=== PATIENT | female | born 1945 | race African-American/Black ===

== ENCOUNTER 2017-09-28 23:54 | Observation (INO) ==
[2017-09-29] MEDS ORDERED: ONDANSETRON 4 MG/2 ML VIAL IV STA (00:40)
[2017-09-29] MEDS ORDERED: MORPHINE 4 MG/1 ML VIAL IV STA (00:40)
[2017-09-29] MEDS ORDERED: NITROGLYCERIN 2% OINT 1 INCH/GM PACK TOP STA (00:40)
[2017-09-29] MEDS ORDERED: ALUM/MAG/SIMETH/LIDO VISC 1:1 30 ML BOTTLE PO STA (00:40)
[2017-09-29] MEDS ORDERED: ASPIRIN 325 MG TABLET PO STA (00:40)
[2017-09-29 00:49] LABS: Basophils # 0.1 10*3/uL (0.0-0.2); Basophils % 0.7 % (0.0-0.8); Eosinophils # 0.2 10*3/uL (0.0-0.87); Eosinophils % 1.9 % (0.00-10.9); Hematocrit 37.5 VOL% (35.7-47.0); Hemoglobin 12.2 GM/DL (12.0-16.0); Immature Granulocytes % 0.2 %; Immature Granulocytes Absolute 0.02 #; Lymphocytes # 4.2 10*3/uL (1.4-4.0); Lymphocytes % 46.2 % (21.3-54.2); Mean Corpuscular HGB Conc 32.5 GM/DL (32-36); Mean Corpuscular Hemoglobin 27 PG (27-34); Mean Corpuscular Volume 82.8 FL (87-102); Monocytes # 0.7 10*3/uL (0.11-0.8); Monocytes % 7.9 % (1.7-12.7); Neutrophils # 3.9 10*3/uL (1.4-7.4); Neutrophils % 43.1 % (38.7-73.9); Platelet Count 324 T/CUMM (130-400); Red Blood Count 4.53 MC/CUMM (3.8-5.5); Red Cell Distribution Width 14.1 % (9.3-17.3)
[2017-09-29 01:00] LABS: PT Patient Result 10.4 SECS
[2017-09-29 01:20] LABS: Alanine Aminotransferase 19 U/L (13-56); Albumin 3.5 G/DL (3.4-5.0); Alkaline Phosphatase 80 U/L (45-117); Aspartate Amino Transferase 11 U/L (0-37); Bilirubin,Total < 0.39 MG/DL (0.2-1.0); Blood Urea Nitrogen 17 MG/DL (7-18); Calcium 9.3 MG/DL (8.5-10.1); Glucose 113 MG/DL (74-106); Potassium 3.4 MMOL/L (3.5-5.1); Sodium 143 MMOL/L (136-145); Total Protein 7.9 G/DL (6.4-8.3)
[2017-09-29 01:31] LABS: Amorphous Crystals,Urine Occasional /HPF (Few); Apearance,Urine CLOUDY (Clear); Bacteria,Urine Occasional /HPF (Few); Bilirubin,Urine Negative (Negative); Blood, Urine Small mg/dL (Negative); Glucose,Urine (UA) Negative (Negative); Ketones,Urine Negative (Negative); Nitrite,Urine Negative (Negative); Protein,Urine Negative; Squamous Epithelial Cell,Urine Occasional /HPF (0-10); Urine Color Yellow (Yellow); Urine Urobilinogen < 2.0 EU/DL (0.2-1.0); WBC,Urine 7 /HPF (0-6)
[2017-09-29] MEDS ORDERED: cefTRIAXone 1,000 MG in SODIUM CHLORIDE 0.9% 100 ML IV STA (02:16)
[2017-09-29] MEDS ORDERED: ONDANSETRON 4 MG/2 ML VIAL IV PRN (03:31)
[2017-09-29] MEDS ORDERED: ACETAMINOPHEN 325 MG TABLET PO PRN (03:31)
[2017-09-29] MEDS ORDERED: MORPHINE 4 MG/1 ML VIAL IV PRN (03:31)
[2017-09-29] MEDS ORDERED: NITROGLYCERIN SL 0.4 MG TABLET SL PRN (03:40)
[2017-09-29] MEDS ORDERED: POTASSIUM CHLORIDE 20 MEQ TABLET PO ONE (04:00)
[2017-09-29] MEDS: GABAPENTIN 300 MG CAPSULE PO SCH ×2 (04:05→11:42)
[2017-09-29 07:27] LABS: Basophils # 0.1 10*3/uL (0.0-0.2); Basophils % 0.5 % (0.0-0.8); Eosinophils # 0.1 10*3/uL (0.0-0.87); Eosinophils % 1.4 % (0.00-10.9); Hematocrit 33.8 VOL% (35.7-47.0); Hemoglobin 11.2 GM/DL (12.0-16.0); Immature Granulocytes % 0.1 %; Immature Granulocytes Absolute 0.01 #; Lymphocytes # 3.3 10*3/uL (1.4-4.0); Lymphocytes % 35.5 % (21.3-54.2); Mean Corpuscular HGB Conc 33.1 GM/DL (32-36); Mean Corpuscular Hemoglobin 27 PG (27-34); Monocytes # 0.9 10*3/uL (0.11-0.8); Monocytes % 9.5 % (1.7-12.7); Platelet Count 290 T/CUMM (130-400); Red Blood Count 4.12 MC/CUMM (3.8-5.5); White Blood Count 9.4 T/CUMM (4-12)
[2017-09-29 08:10] LABS: Calcium 8.8 MG/DL (8.5-10.1); Potassium 3.8 MMOL/L (3.5-5.1); Risk Ratio 2.85; Thyroid Stimulating Hormone 1.03 uIU/ml (0.358-3.74)
[2017-09-29] MEDS ORDERED: POTASSIUM CHLORIDE 20 MEQ TABLET PO PRN (08:29)
[2017-09-29] MEDS ORDERED: Mirabegron [Myrbetriq] 25 MG PO SCH (09:00)
[2017-09-29] MEDS ORDERED: REGADENOSON 0.4 MG/5 ML SYRINGE IV ONE (10:52)
[2017-09-29] MEDS: ASPIRIN EC 81 MG TABLET PO SCH (11:43)
[2017-09-29] MEDS: CYCLOBENZAPRINE 10 MG TABLET PO SCH ×2 (11:43→14:12)
[2017-09-29] MEDS: MELOXICAM 7.5 MG TABLET PO SCH (11:43)
[2017-09-29] MEDS: PANTOPRAZOLE 40 MG TABLET PO SCH (11:43)
[2017-09-29] MEDS: ENOXAPARIN 40 MG/0.4 ML SYRINGE SUBCUT SCH (11:43)
[2017-09-30] MEDS ORDERED: cefTRIAXone 1,000 MG in SYRINGE 1 EACH IV SCH (06:00)
[2017-09-30 06:29] LABS: Basophils % 0.6 % (0.0-0.8); Eosinophils # 0.1 10*3/uL (0.0-0.87); Eosinophils % 2.1 % (0.00-10.9); Hematocrit 33.4 VOL% (35.7-47.0); Hemoglobin 11.2 GM/DL (12.0-16.0); Immature Granulocytes % 0.2 %; Immature Granulocytes Absolute 0.01 #; Lymphocytes # 3.7 10*3/uL (1.4-4.0); Lymphocytes % 55.1 % (21.3-54.2); Mean Corpuscular HGB Conc 33.5 GM/DL (32-36); Mean Corpuscular Hemoglobin 27 PG (27-34); Mean Corpuscular Volume 81.3 FL (87-102); Mean Platelet Volume 9.3 FL (9.6-12.0); Monocytes # 0.6 10*3/uL (0.11-0.8); Monocytes % 8.9 % (1.7-12.7); Neutrophils # 2.2 10*3/uL (1.4-7.4); Neutrophils % 33.1 % (38.7-73.9); Platelet Count 292 T/CUMM (130-400); Red Blood Count 4.11 MC/CUMM (3.8-5.5); White Blood Count 6.6 T/CUMM (4-12)
[2017-09-30 07:07] LABS: Calcium 8.4 MG/DL (8.5-10.1); Eosinophils 3 % (0-10); Lymphocytes 58 % (20-55); Osmolality,Calculated 284.1 MOS/KG (273-304); Potassium 3.9 MMOL/L (3.5-5.1); Segmented Neutrophils 31 % (50-85); Total Cells Counted 100
[2017-09-30 07:08] LABS: Platelet Estimate Normal
[2017-09-30 07:16] LABS: Troponin I Only < 0.015 NG/ML (0.00-0.045)
[2017-09-30 08:10] VITALS: BP 117/63
[2017-09-30] MEDS: ASPIRIN EC 81 MG TABLET PO SCH (08:48)
[2017-09-30] MEDS: MELOXICAM 7.5 MG TABLET PO SCH (08:48)
[2017-09-30] MEDS: ENOXAPARIN 40 MG/0.4 ML SYRINGE SUBCUT SCH (08:49)
[2017-09-30] MEDS: PANTOPRAZOLE 40 MG TABLET PO SCH (08:49)
[2017-10-04] MEDS ORDERED: Alendronate Sodium [Alendronate Sodium] 35 MG PO SCH (09:00)
== END 2017-09-30 11:32 | disposition home or self-care (01) ==
LOC: N.EDINP 23:54 → N.ED 23:54 → SUATTDRO 09-29 03:23 → N.TELES 09-29 03:48
PROVIDERS: ADMIT Internal Medicine; ATTEND Hospitalist